=== PATIENT | male | born 1985 | race Caucasian/White ===

== ENCOUNTER 2020-06-03 19:11 | Emergency (ER) | payer OTHER ==
[~2020-06-03 19:11] MED LIST: BENTYL10 MG PO; BUSPIRONE HCL15 MG PO; CLEOCIN300 MG PO; CLINDAMYCIN HC150 MG PO; FLEXERIL10 MG PO; IBUPROFEN800 MG PO; MEDROL 4MG DOSEP4 MG PO; MOTRIN600 MG PO; NAPROXEN500 MG PO; PERCOCET 5-3251 EACH PO; PERIDEX15 ML PO; PHENERGAN25 M1 PO; PROZAC20 MG PO; TOPROL XL 25MG25 MG PO; VENTOLIN HFA18 GM INH; ZOFRAN4 MG PO
[2020-06-03 20:55] LABS: EOSINOPHIL 6.8 % (0-5); HCT 44.2 % (42.0-52.0); LYMPHOCYTE 24.4 % (15-48); MCH 30.7 pg (25.0-31.0); MCHC 33.9 g/dL (32.0-36.0); MCV 90.6 fL (78.0-100.0); MONOCYTE 6.3 % (0-12); MPV 9.9 fL (6.0-9.5); NEUTROPHIL 61.3 % (41-80); NRBC 0; PLT 280 K/uL (150-400); RBC 4.88 M/uL (4.70-6.00); RDW 12.8 % (11.5-14.0); WBC 12.4 K/uL (4.0-10.5)
[2020-06-03 21:22] LABS: ALBUMIN 3.8 g/dL (3.4-5.0); BILIRUBIN - TOTAL 0.4 mg/dL (0.2-1.0); BUN/CREAT RATIO (CALC) 23.5 RATIO; CREATININE 0.81 mg/dL (0.67-1.17); GLOBULIN (CALCULATION) 3.7 g/dL; POTASSIUM 3.6 mmol/L (3.5-5.1); TOTAL PROTEIN 7.5 g/dL (6.4-8.2)
[2020-06-03 21:28] LABS: BILIRUBIN NEGATIVE (NEGATIVE); BLOOD TRACE-INTACT Ery/uL (NEGATIVE); CLARITY CLEAR (CLEAR); COLOR YELLOW (YELLOW); GLUCOSE (U) NORMAL (NORMAL); LEUKOCYTES 1+ Leu/uL (NEGATIVE); NITRITE POSITIVE (NEGATIVE); PROTEIN NEGATIVE (NEGATIVE); SPECIFIC GRAVITY 1.015 (1.001-1.030); UROBILINOGEN 0.2 mg/dL (0.2-1.0); pH 6.5 (5.0-9.0)
[2020-06-03 21:30] LABS: AMPHETAMINES NEGATIVE (NEGATIVE); BARBITURATES NEGATIVE (NEGATIVE); ECSTASY (MDMA) NEGATIVE (NEGATIVE); MARIJUANA (THC) NEGATIVE (NEGATIVE); METHADONE NEGATIVE (NEGATIVE); OPIATES NEGATIVE (NEGATIVE); OXYCODONE NEGATIVE (NEGATIVE)
[2020-06-03 21:36] LABS: BACTERIA 4+; URINARY RBC RARE
[2020-06-03 21:38] LABS: URINARY WBC 20-50
[2020-06-03] MEDS ORDERED: BACTRIM DS TAB1 EACH PO (22:10)
[2020-06-03] MEDS ORDERED: ZOFRAN4 M1 PO (22:10)
[2020-06-06 17:10] LABS: CHLAMYDIA TRACHOMATIS, NAA Negative (Negative); NEISSERIA GONORRHOEAE, NAA Negative (Negative)
== END 2020-06-03 22:26 | disposition home or self-care (01) ==
LOC: FER 19:11
PROVIDERS: Nurse Practitioner Family
DX: N39.0 Urinary tract infection, site not specified (principal); Z88.0 Allergy status to penicillin; Z88.5 Allergy status to narcotic agent; Z88.8 Allergy status to other drugs, medicaments and biological substances; Z88.6 Allergy status to analgesic agent; Z20.822 Contact with and (suspected) exposure to COVID-19
CPT/HCPCS: 36415; 80053; 80305; 81001; 85025; 87076; 87088; 87186; 87491; 87591; 99284; U0002

== ENCOUNTER 2020-06-27 07:18 | Emergency (ER) | payer OTHER ==
[~2020-06-27 07:18] MED LIST changes: +BACTRIM DS TAB1 EACH PO; +ZOFRAN4 M1 PO
== END 2020-06-27 11:30 | disposition home or self-care (01) ==
LOC: FER 07:18
DX: I83.92 Asymptomatic varicose veins of left lower extremity (principal); J45.909 Unspecified asthma, uncomplicated
CPT/HCPCS: 93971

== ENCOUNTER 2020-08-24 14:24 | Emergency (ER) | payer OTHER ==
[2020-08-24 15:40] LABS: BILIRUBIN NEGATIVE (NEGATIVE); BLOOD TRACE-INTACT Ery/uL (NEGATIVE); CLARITY CLEAR (CLEAR); COLOR YELLOW (YELLOW); GLUCOSE (U) NORMAL (NORMAL); LEUKOCYTES 1+ Leu/uL (NEGATIVE); NITRITE POSITIVE (NEGATIVE); PROTEIN NEGATIVE (NEGATIVE); UROBILINOGEN 0.2 mg/dL (0.2-1.0)
[2020-08-24 15:40] LABS: BASOPHIL 0.8 % (0-2); EOSINOPHIL 5.7 % (0-5); HCT 45.3 % (42.0-52.0); HGB 15.4 g/dl (13.2-18.0); LYMPHOCYTE 23.8 % (15-48); MCH 31.4 pg (25.0-31.0); MCV 92.4 fL (78.0-100.0); MONOCYTE 6.2 % (0-12); MPV 9.9 fL (6.0-9.5); NEUTROPHIL 63.2 % (41-80); NRBC 0; PLT 289 K/uL (150-400); RDW 12.7 % (11.5-14.0); WBC 9.9 K/uL (4.0-10.5)
[2020-08-24 15:46] LABS: AMPHETAMINES NEGATIVE (NEGATIVE); BACTERIA 4+; BARBITURATES NEGATIVE (NEGATIVE); ECSTASY (MDMA) NEGATIVE (NEGATIVE); MARIJUANA (THC) NEGATIVE (NEGATIVE); METHADONE NEGATIVE (NEGATIVE); OPIATES NEGATIVE (NEGATIVE); OXYCODONE NEGATIVE (NEGATIVE); URINARY WBC 20-50
[2020-08-24 15:59] LABS: BUN/CREAT RATIO (CALC) 17.4 RATIO; CREATININE 0.92 mg/dL (0.67-1.17); POTASSIUM 3.8 mmol/L (3.5-5.1)
[2020-08-24] MEDS ORDERED: BACTRIM DS TAB1 EACH PO (17:32)
[2020-08-24] MEDS ORDERED: ONDANSETRON ODT4 MG PO (17:33)
== END 2020-08-24 17:47 | disposition home or self-care (01) ==
LOC: FER 14:24
PROVIDERS: Nurse Practitioner Family
DX: N39.0 Urinary tract infection, site not specified (principal); R19.7 Diarrhea, unspecified; Z90.49 Acquired absence of other specified parts of digestive tract; Z88.0 Allergy status to penicillin; Z88.5 Allergy status to narcotic agent; Z88.6 Allergy status to analgesic agent; Z20.822 Contact with and (suspected) exposure to COVID-19
CPT/HCPCS: 36415; 80048; 80305; 81001; 85025; 87076; 87088; 87186; J2405; J7030; U0002

== ENCOUNTER 2020-09-13 19:19 | Emergency (ER) | payer OTHER ==
[~2020-09-13 19:19] MED LIST changes: +ONDANSETRON ODT4 MG PO
[2020-09-13 20:13] LABS: BASOPHIL 0.8 % (0-2); EOSINOPHIL 4.6 % (0-5); HCT 41.9 % (42.0-52.0); HGB 14.1 g/dl (13.2-18.0); LYMPHOCYTE 27.5 % (15-48); MCH 31.5 pg (25.0-31.0); MCHC 33.7 g/dL (32.0-36.0); MCV 93.5 fL (78.0-100.0); MONOCYTE 4.5 % (0-12); MPV 10.3 fL (6.0-9.5); NEUTROPHIL 62.4 % (41-80); NRBC 0; PLT 282 K/uL (150-400); RBC 4.48 M/uL (4.70-6.00); RDW 12.8 % (11.5-14.0); WBC 10.4 K/uL (4.0-10.5)
[2020-09-13 20:22] LABS: ALBUMIN 3.7 g/dL (3.4-5.0); BILIRUBIN - TOTAL 0.2 mg/dL (0.2-1.0); CREATININE 0.77 mg/dL (0.67-1.17); GLOBULIN (CALCULATION) 3.7 g/dL; MAGNESIUM 2.1 mg/dL (1.8-2.4); POTASSIUM 3.2 mmol/L (3.5-5.1); TOTAL PROTEIN 7.4 g/dL (6.4-8.2)
[2020-09-13] MEDS ORDERED: PREDNISONE20 MG PO (21:07)
[2020-09-13] MEDS ORDERED: VIBRAMYCIN100 MG PO (21:07)
== END 2020-09-13 21:23 | disposition home or self-care (01) ==
LOC: FER 19:19
PROVIDERS: Emergency Medicine
DX: J45.909 Unspecified asthma, uncomplicated (principal); Z88.5 Allergy status to narcotic agent; Z91.048 Other nonmedicinal substance allergy status
CPT/HCPCS: 36415; 71046; 80053; 83735; 84145; 84484; 85025; 85379; 93005; 94640; 94664; J2930

== ENCOUNTER 2020-09-26 20:24 | Emergency (ER) | payer OTHER ==
[~2020-09-26 20:24] MED LIST changes: +PREDNISONE20 MG PO; +VIBRAMYCIN100 MG PO
[2020-09-26 22:40] LABS: AMPHETAMINES NEGATIVE (NEGATIVE); BARBITURATES NEGATIVE (NEGATIVE); BILIRUBIN NEGATIVE (NEGATIVE); BLOOD NEGATIVE Ery/uL (NEGATIVE); CLARITY CLEAR (CLEAR); COLOR YELLOW (YELLOW); ECSTASY (MDMA) NEGATIVE (NEGATIVE); GLUCOSE (U) NORMAL (NORMAL); LEUKOCYTES NEGATIVE Leu/uL (NEGATIVE); MARIJUANA (THC) NEGATIVE (NEGATIVE); METHADONE NEGATIVE (NEGATIVE); NITRITE NEGATIVE (NEGATIVE); OPIATES NEGATIVE (NEGATIVE); OXYCODONE NEGATIVE (NEGATIVE); PROTEIN NEGATIVE (NEGATIVE); UROBILINOGEN 0.2 mg/dL (0.2-1.0)
[2020-09-26 22:46] LABS: BASOPHIL 1.1 % (0-2); EOSINOPHIL 5.7 % (0-5); HCT 41.3 % (42.0-52.0); HGB 13.9 g/dl (13.2-18.0); LYMPHOCYTE 26.6 % (15-48); MCH 31.6 pg (25.0-31.0); MCHC 33.7 g/dL (32.0-36.0); MCV 93.9 fL (78.0-100.0); MONOCYTE 4.9 % (0-12); NEUTROPHIL 61.3 % (41-80); NRBC 0; PLT 224 K/uL (150-400); RDW 12.5 % (11.5-14.0); WBC 11.3 K/uL (4.0-10.5)
[2020-09-26 23:03] LABS: ALBUMIN 3.5 g/dL (3.4-5.0); BILIRUBIN - TOTAL 0.2 mg/dL (0.2-1.0); BUN/CREAT RATIO (CALC) 14.9 RATIO; CREATININE 0.74 mg/dL (0.67-1.17); GLOBULIN (CALCULATION) 3.6 g/dL; POTASSIUM 3.6 mmol/L (3.5-5.1); TOTAL PROTEIN 7.1 g/dL (6.4-8.2)
[2020-09-28 22:07] LABS: CHLAMYDIA TRACHOMATIS, NAA Negative (Negative); NEISSERIA GONORRHOEAE, NAA Negative (Negative)
== END 2020-09-27 04:52 | disposition home or self-care (01) ==
LOC: FER 20:24
PROVIDERS: Nurse Practitioner Family
DX: R10.9 Unspecified abdominal pain (principal); R32 Unspecified urinary incontinence; Z88.0 Allergy status to penicillin; Z88.5 Allergy status to narcotic agent; Z91.048 Other nonmedicinal substance allergy status
CPT/HCPCS: 36415; 80053; 80305; 81003; 85025; 87491; 87591; Q9967